=== PATIENT | female | born 1985 | race Caucasian/White ===

== ENCOUNTER 2017-03-07 04:03 | Emergency (ER) | payer BC ==
[~2017-03-07] VITALS: Ht 154.9 cm; Wt 57.6 kg
[2017-03-07] MEDS ORDERED: SEROQUEL300 M1 (04:14)
[2017-03-07] MEDS ORDERED: ATIVAN0.5 MG (04:14)
[2017-03-07] MEDS ORDERED: TIROSINT50 MCG (04:14)
[2017-03-07] MEDS ORDERED: LAMICTAL (04:14)
[2017-03-07] MEDS ORDERED: MINIPRESS (04:14)
== END 2017-03-07 05:45 | disposition home or self-care (01) ==
LOC: CED 04:03
DX: G47.00 Insomnia, unspecified (principal); F31.9 Bipolar disorder, unspecified; Z88.8 Allergy status to other drugs, medicaments and biological substances; Z91.011 Allergy to milk products
CPT/HCPCS: 99283